=== PATIENT | male | born 1980 | race Caucasian/White ===

== ENCOUNTER 2017-03-01 12:33 | Emergency (ER) | payer OTHER ==
[~2017-03-01 12:33] MED LIST: AMITRYPTYLINE PO; BENTYL20 M1 PO; CIPRO PO; METFORMIN PO; METHADONE PO; OMEPRAZOLE40 MG PO; PEPCID AC20 M2 PO; PHENERGAN25 M1 PO; PHENERGAN25 MG PO; REGLAN10 MG PO; TRANSDERM-1 PATCH .7 TOP; ZOFRAN ODT4 MG PO; ZOFRAN PO
== END 2017-03-01 13:30 | disposition left against medical advice (07) ==
LOC: CED 12:33
DX: Z53.21 Procedure and treatment not carried out due to patient leaving prior to being seen by health care provider (principal)